=== PATIENT | male | born 1990 | race Caucasian/White ===

== ENCOUNTER 2017-07-24 12:03 | Emergency (ER) | payer OTHER, BC ==
[2017-07-24] MEDS: IBUPROFEN 600 MG TAB PO (14:20)
== END 2017-07-24 14:58 | disposition home or self-care (01) ==
LOC: M ED 12:03
DX: S33.5XXA Sprain of ligaments of lumbar spine, initial encounter (principal); S50.02XA Contusion of left elbow, initial encounter; R55 Syncope and collapse; X58.XXXA Exposure to other specified factors, initial encounter; Y92.9 Unspecified place or not applicable; Y93.9 Activity, unspecified; Y99.0 Civilian activity done for income or pay; Z79.899 Other long term (current) drug therapy
CPT/HCPCS: 73080

== ENCOUNTER 2017-07-26 16:29 | Emergency (ER) | payer OTHER ==
[2017-07-26 17:45] LABS: BASO % 0.6 % (0.0-1.0); EOS # 0.2 10^3/uL (0.0-0.50); EOS % 2.3 % (0.0-3.0); HEMATOCRIT 43.8 % (42.0-52.0); HEMOGLOBIN 15.3 g/dl (14.0-18.0); IMMATURE GRANULOCYTE % 0.5 % (0-3.0); LYMPH # 2.1 10^3/uL (1.5-6.5); MEAN CORPUSCULAR HEMOGLOBIN 30.5 pg (27.0-33.0); MEAN CORPUSCULAR HGB CONC 34.9 g/dl (32.0-36.5); MEAN CORPUSCULAR VOLUME 87.3 fl (80.0-96.0); MONO # 0.6 10^3/uL (0.0-0.8); MONO % 8.4 % (0.0-5.0); NEUTROPHILS # 3.7 10^3/uL (1.8-7.7); NEUTROPHILS % 56.2 % (36.0-66.0); PLATELET COUNT, AUTOMATED 168 10^3/uL (150-450); RED BLOOD COUNT 5.02 10^6/uL (4.30-6.10); RED CELL DISTRIBUTION WIDTH 12.2 % (11.5-14.5); WHITE BLOOD COUNT 6.6 10^3/uL (4.0-10.0)
[2017-07-26] MEDS: MORPHINE 4 MG/ML 1ML VIAL (J2270) IV (17:45)
[2017-07-26 18:10] LABS: AMYLASE 38 U/L (25-115); ANION GAP 9 MEQ/L (8-16); BLOOD UREA NITROGEN 16 MG/DL (7-18); C REACTIVE PROTEIN QUANTITATIV 1.44 MG/DL (0.00-0.30); CALCIUM LEVEL 8.9 MG/DL (8.5-10.1); CARBON DIOXIDE LEVEL 28 MEQ/L (21-32); CHLORIDE LEVEL 108 MEQ/L (98-107); CREATININE FOR GFR 1.06 MG/DL (0.70-1.30); GLOMERULAR FILTRATION RATE > 60.0 (>60); GLUCOSE, FASTING 82 MG/DL (70-100); LIPASE 145 U/L (73-393); SODIUM LEVEL 145 MEQ/L (136-145)
[2017-07-26 19:43] LABS: KETONE, URINE AUTO RFX NEGATIVE (NEGATIVE); LEUKOCYTE ESTERASE UR AUTO RFX NEGATIVE (NEGATIVE); MUCUS, URINE RFX SMALL (NEGATIVE); NITRITE, URINE AUTO RFX NEGATIVE (NEGATIVE); RBC, URINE AUTO RFX 0 /HPF (0-3); SQUAM EPITHELIAL CELL UR AURFX 0 /HPF (0-6); WBC, URINE AUTO RFX 0 /HPF (0-3)
[2017-07-26] MEDS: metroNIDAZOLE (FLAGYL) 500 MG TAB PO (21:00)
[2017-07-26] MEDS: CIPROFLOXACIN 500 MG TAB PO (21:00)
== END 2017-07-26 21:20 | disposition home or self-care (01) ==
LOC: M ED 16:29
DX: K57.30 Diverticulosis of large intestine without perforation or abscess without bleeding (principal); N20.0 Calculus of kidney; R16.1 Splenomegaly, not elsewhere classified; I10 Essential (primary) hypertension; F32.9 Major depressive disorder, single episode, unspecified; Z79.899 Other long term (current) drug therapy
CPT/HCPCS: J2270

== ENCOUNTER 2020-06-28 07:07 | Emergency (ER) | payer OTHER ==
[~2020-06-28] VITALS: Ht 180.3 cm; Wt 106.8 kg
[~2020-06-28 07:07] MED LIST: CIPR-249 PO; EFFE37.5 PO; FLAG500T PO; IBUP-1022 PO; LISI10TA22 PO; ZOFR4TAB14 PO
--- OUTSIDE RECORDS SUMMARY | 2020-06-28 07:12 | CCD ---
Author Author [facility] Organization [facility] Address Unknown Phone Unavailable Care Team Providers Care Management Consultant Name Role Phone Mag MOURA JR, PA-C Unavailable Unavailable Mag MOURA JR, PA-C Unavailable Unavailable Mag MOURA JR, PA-C Unavailable Unavailable Mag MOURA JR, PA-C Unavailable Unavailable Mag MOURA JR, PA-C Unavailable Unavailable Mag MOURA JR, PA-C Unavailable Unavailable Mag MOURA JR, PA-C Unavailable Unavailable Mag MOURA JR, PA-C Unavailable Unavailable Mag MOURA JR, PA-C Unavailable Unavailable PICKERAL JR, J RO PA-C Unavailable Unavailable PICKERAL JR, J RO PA-C Unavailable Unavailable PICKERAL JR, J RO PA-C Unavailable Unavailable PICKERAL JR, J RO PA-C Unavailable Unavailable PICKERAL JR, J RO PA-C Unavailable Unavailable PICKERAL JR, J RO PA-C Unavailable Unavailable PICKERAL JR, J RO PA-C Unavailable Unavailable PICKERAL JR, J RO PA-C Unavailable Unavailable PICKERAL JR, J RO PA-C Unavailable Unavailable PICKERAL JR, J RO PA-C Unavailable Unavailable Dille, E Jacqueline DDS Unavailable Unavailable Dille, E Jacqueline DDS Unavailable Unavailable Dille, E Jacqueline DDS Unavailable Unavailable Dille, E Jacqueline DDS Unavailable Unavailable Larry, Elodia CASH PROCESSOR Unavailable Unavailable Larry, Elodia CASH PROCESSOR Unavailable Unavailable Larry, Elodia CASH PROCESSOR Unavailable Unavailable Larry, Elodia CASH PROCESSOR Unavailable Unavailable Larry, Elodia CASH PROCESSOR Unavailable Unavailable Larry, Elodia CASH PROCESSOR Unavailable Unavailable Larry, Elodia CASH PROCESSOR Unavailable Unavailable Larry, Elodia CASH PROCESSOR Unavailable Unavailable Larry, Elodia CASH PROCESSOR Unavailable Unavailable Larry, Elodia CASH PROCESSOR Unavailable Unavailable Larry, Elodia CASH PROCESSOR Unavailable Unavailable Larry, Elodia CASH PROCESSOR Unavailable Unavailable Larry, Elodia CASH PROCESSOR Unavailable Unavailable Larry, Elodia CASH PROCESSOR Unavailable Unavailable Larry, Elodia CASH PROCESSOR Unavailable Unavailable Larry, Elodia CASH PROCESSOR Unavailable Unavailable Larry, Elodia CASH PROCESSOR Unavailable Unavailable Larry, Elodia CASH PROCESSOR Unavailable Unavailable Larry, Elodia CASH PROCESSOR Unavailable Unavailable Larry, Elodia CASH PROCESSOR Unavailable Unavailable Larry, Elodia CASH PROCESSOR Unavailable Unavailable Larry, Elodia CASH PROCESSOR Unavailable Unavailable Larry, Elodia CASH PROCESSOR Unavailable Unavailable Larry, Elodia CASH PROCESSOR Unavailable Unavailable Larry, Elodia CASH PROCESSOR Unavailable Unavailable Larry, Elodia CASH PROCESSOR Unavailable Unavailable Larry, Elodia CASH PROCESSOR Unavailable Unavailable Larry, Elodia CASH PROCESSOR Unavailable Unavailable Larry, Elodia CASH PROCESSOR Unavailable Unavailable Larry, Elodia CASH PROCESSOR Unavailable Unavailable Larry, Elodia CASH PROCESSOR Unavailable Unavailable Larry, Elodia CASH PROCESSOR Unavailable Unavailable Larry, Elodia CASH PROCESSOR Unavailable Unavailable Larry, Elodia CASH PROCESSOR Unavailable Unavailable Larry, Elodia CASH PROCESSOR Unavailable Unavailable Larry, Elodia CASH PROCESSOR Unavailable Unavailable Larry, Elodia CASH PROCESSOR Unavailable Unavailable Larry, Elodia CASH PROCESSOR Unavailable Unavailable Larry, Elodia CASH PROCESSOR Unavailable Unavailable Larry, Elodia CASH PROCESSOR Unavailable Unavailable Larry, Elodia CASH PROCESSOR Unavailable Unavailable Larry, Elodia CASH PROCESSOR Unavailable Unavailable Larry, Elodia CASH PROCESSOR Unavailable Unavailable Larry, Elodia CASH PROCESSOR Unavailable Unavailable Larry, Elodia CASH PROCESSOR Unavailable Unavailable Larry, Elodia CASH PROCESSOR Unavailable Unavailable Larry, Elodia CASH PROCESSOR Unavailable Unavailable Larry, Elodia CASH PROCESSOR Unavailable Unavailable Larry, Elodia CASH PROCESSOR Unavailable Unavailable Larry, Elodia CASH PROCESSOR Unavailable Unavailable Larry, Elodia CASH PROCESSOR Unavailable Unavailable Larry, Elodia CASH PROCESSOR Unavailable Unavailable Larry, Elodia CASH PROCESSOR Unavailable Unavailable Bartoszewski, Roz Alejandrina MS, RPA-C Unavailable Unav ailable Bartoszewski, Roz Alejandrina MS, RPA-C Unavailable Unav ailable Bartoszewski, Roz Alejandrina MS, RPA-C Unavailable Unav ailable Bartoszewski, Roz Alejandrina MS, RPA-C Unavailable Unav ailable Bartoszewski, Roz Alejandrina MS, RPA-C Unavailable Unav ailable Bartoszewski, Roz Alejandrina MS, RPA-C Unavailable Unav ailable Bartoszewski, Roz Alejandrina MS, RPA-C Unavailable Unav ailable Bartoszewski, Roz Alejandrina MS, RPA-C Unavailable Unav ailable Bartoszewski, Roz Alejandrina MS, RPA-C Unavailable Unav ailable Bartoszewski, Roz Alejandrina MS, RPA-C Unavailable Unav ailable Bartoszewski, Roz Alejandrina MS, RPA-C Unavailable Unav ailable Bartoszewski, Roz Alejandrina MS, RPA-C Unavailable Unav ailable Bartoszewski, Roz Alejandrina MS, RPA-C Unavailable Unav ailable Bartoszewski, Roz Alejandrina MS, RPA-C Unavailable Unav ailable Bartoszewski, Roz Alejandrina MS, RPA-C Unavailable Unav ailable Bartoszewski, Roz Alejandrina MS, RPA-C Unavailable Unav ailable Bartoszewski, Roz Alejandrina MS, RPA-C Unavailable Unav ailable Bartoszewski, Roz Alejandrina MS, RPA-C Unavailable Unav ailable Bartoszewski, Roz Alejandrina MS, RPA-C Unavailable Unav ailable Bartoszewski, Roz Alejandrina MS, RPA-C Unavailable Unav ailable Bartoszewski, Roz Alejandrina MS, RPA-C Unavailable Unav ailable Bartoszewski, Roz Alejandrina MS, RPA-C Unavailable Unav ailable Bartoszewski, Roz Alejandrina MS, RPA-C Unavailable Unav ailable Bartoszewski, Roz Alejandrina MS, RPA-C Unavailable Unav ailable Bartoszewski, Roz Alejandrina MS, RPA-C Unavailable Unav ailable Bartoszewski, Roz Alejandrina MS, RPA-C Unavailable Unav ailable Bartoszewski, Roz Alejandrina MS, RPA-C Unavailable Unav ailable Bartoszewski, Roz Alejandrina MS, RPA-C Unavailable Unav ailable Bartoszewski, Roz Alejandrina MS, RPA-C Unavailable Unav ailable Re-disclosure Warning The records that you are about to access may contain information from federally-assisted alcohol or drug abuse programs. If such information is present, then the following federally mandated warning applies: This information has been disclosed to you from records protected by federal confidentiality rules (42 CFR part 2). The federal rules prohibit you from making any further disclosure of this information unless further disclosure is expressly permitted by the written consent of the person to whom it pertains or as otherwise permitted by 42 CFR part 2. A general authorization for the release of medical or other information is NOT sufficient for this purpose. The Federal rules restrict any use of the information to criminally investigate or prosecute any alcohol or drug abuse patient.The records that you are about to access may contain highly sensitive health information, the redisclosure of which is protected by Article 27-F of the [facility] Public Health law. If you continue you may have access to information: Regarding HIV / AIDS; Provided by facilities licensed or operated by the [facility] Office of Mental Health; or Provided by the [facility] Office for People With Developmental Disabilities. If such information is present, then the following [place] State mandated warning applies: This information has been disclosed to you from confidential records which are protected by state law. State law prohibits you from making any further disclosure of this information without the specific written consent of the person to whom it pertains, or as otherwise permitted by law. Any unauthorized further disclosure in violation of state law may result in a fine or [place] health care facility sentence or both. A general authorization for the release of medical or other information is NOT sufficient authorization for further disc losure. Family History Family Member Name Family Member Gender Family Member Status Date o f Status Description Data Source(s) Unknown Unknown Problem [facility] ([facility]) daughter with second child on the way Unknown Unknown Problem [facility] ([facility], [facility]) mgf,pgf Encounters Encounter Providers Location Date Indications Data Source(s ) Outpatient Attender: Jacqueline Gallo DDS [facility] 12/27/2019 08:02:17 P [facility] Outpatient Attender: RO Wisdom 0 12/25/2019 11:00:00 AM [facility] Outpatient Attender: Jacqueline Gallo DDS [facility] 11/28/2019 09:52:02 A M [facility] Outpatient Attender: Jacqueline Gallo DDS [facility] 11/27/2019 01:24:01 P [facility] Outpatient Attender: Jacqueline Gallo DDS [facility] 11/27/2019 01:23:01 P [facility] Outpatient Attender: Jacqueline Gallo DDS [facility] 11/27/2019 12:14:01 P [facility] Outpatient Attender: Jacqueline Gallo DDS [facility] 11/19/2019 07:49:42 P [facility] Outpatient Attender: Jacqueline Gallo DDS [facility] 11/09/2019 12:15:36 A [facility] Outpatient Attender: Elodia Wisdom 0 07/09/2019 12:00:00 PM [facility] ([facility] ) Emergency Attender: Alejandrina Lagunas MS, RPA-C 05/27/2013 09:24:00 AM EST - 05/27/2013 11:05:00 AM [facility] Medications Medication Brand Name Start Date Product Form Dose Route Admi nistrative Instructions Pharmacy Instructions Status Indications Reaction Description Data Source(s) 500 mg 06/04/2020 12:00:00 AM EST capsule 20 TAKE ONE CAPSULE BY MOUTH TWICE A DAY FOR 10 DAYS TAKE ONE CAPSULE BY MOUTH TWICE A DAY FOR 10 DAYS SOLD : 06/06/2020 [facility] Insurance Providers Payer name Policy type / Coverage type Policy ID Covered democrat ID Covered democrat's relationship to cline Policy Cline Plan Information [employer] W/C [id number] SP [id number] UMR P UNAVAILABLE S UNAVAILA BLE UMR RISK MANAGEMENT [id number] S [id number] UMR U [id number] Self [id number] Ghi/[employer] Medigap Part B [id number] Family Dependent [id number] [place]/Umr (Old) Medigap Part B [id number] Self [id number] Workers Compensation Workers Compensation [id number] Self [id number] Umr (New [place]) Commercial [id number] Self [id number] BS [place] Commercial [id number] Self [id number] UMR [id number] S [id number] SELF PAY UNAVAILABLE S UNAVAILA BLE UMR [id number] S [id number] Umr/Uhc/[employer] Health Maintenance Organization (HMO) [id number] Self [id number] Umr/Uhc/[employer] Health Maintenance Organization (HMO) [id number] Self [id number] Workers Compensation Workers Compensation [id number] Self [id number] Ghi/[employer] Medigap Part B [id number] Family Dependent [id number] Umr [place] Ppo Commercial [id number] Self [id number] [facility] SELF INSURED [id number] SP [id number] Ghi/[employer] Medigap Part B [id number] Family Dependent [id number] Umr [place] Ppo Commercial [id number] Self [id number] G[employer] Medigap Part B [id number] Family Dependent [id number] Umr [place] Ppo Commercial [id number] Self [id number] G[employer] Medigap Part B [id number] Family Dependent [id number] Umr [place] Ppo Commercial [id number] Self [id number] [facility] SELF INS O [id number] O [id number] [employer] [id number] FA2 [id number] BCBS [phone] [id number] MO2 [id number] Ghi/[employer] Medigap Part B [id number] Family Dependent [id number] Umr [place] Ppo Commercial [id number] Self [id number] Ghi[employer] Medigap Part B [id number] Family Dependent [id number] Umr [place] Ppo Commercial [id number] Self [id number] [place] Risk MGMNT [facility] Workers Compensation [id number] Jenna f [id number] [employer] Commercial [id number] Self [id number] D Guardian P [id number] S [id number] Ghi/[employer] Medigap Part B [id number] Family Dependent [id number] [place] Ppo Commercial [id number] Self [id number] [employer] COMM SELF [id number] S [id number] Ghi/[employer] Medigap Part B [id number] Family Dependent [id number] [place] Ppo Commercial [id number] Self [id number] Ghi/[employer] Commercial [id number] Family Dependent [id number] [facility] [id number] [place](W/C-[facility]& [employer] Workers Compensation Self [place] Commercial Self [facility] SELF INSURED [id number] S [id number] Problems, Conditions, and Diagnoses Code Display Name Description Problem Type Effective Dates Data Source(s) 16425163 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 Problem 03/04/20 12:00:00 AM EDT [facility] ([facility], ) 66021278 Visual disturbance Visual disturbance Problem 05/2020 12:00:00 AM EDT [facility] ([facility], ) [id number] Dizziness and giddiness Dizziness and giddiness Proble m 01/22/2020 12:00:00 AM EDT [facility] ([facility], ) [id number] Isolated seizures Isolated seizures Problem 01/21 12:00:00 AM EDT [facility] ([facility] ) 601507908 Syncope and collapse Syncope and collapse Problem 01/22/2020 12:00:00 AM EDT [facility] ([facility] ) Surgeries/Procedures Procedure Description Date Indications Data Source(s) ELECTROENCEPHALOGRAM W/REC AWAKE&ASLEEP 03/02/2020 12: 00:00 AM EDT [facility] ([facility] ) ELECTROENCEPHALOGRAM W/REC AWAKE&ASLEEP 03/02/2020 12: 00:00 AM EDT [facility] ([facility] ) Magnetic Resonance Angiogtaphy Head W/O Contrast Material(S) 02/11/2020 12:00:00 AM EDT [facility] ([facility] ) Magnetic Resonance Angiogtaphy Head W/O Contrast Material(S) 02/11/2020 12:00:00 AM EDT [facility] ([facility] ) MRI Brain W/O Contrast, Followed By Contrast 0 12:00:00 AM EDT [facility] ([facility], ) MRI Brain W/O Contrast, Followed By Contrast 0 12:00:00 AM EDT [facility] ([facility], ) Results ID Date Data Source [id number] 06/04/2020 12:00:00 AM EST [facility] Name Value Range Interpretation Code Description Data Syeda rce(s) Supporting Document(s) SARS coronavirus 2 RNA [Presence] in Res piratory specimen by SHERRIE with probe detection [facility] This lab was ordered by Elizabeth [place] and reported by [facility]. ID Date Data Source [id number] 06/04/2020 12:00:00 AM EST [facility] Name Value Range Interpretation Code Description Data Syeda rce(s) Supporting Document(s) Carestart Rapid COVID Antigen Test [facility] This lab was reported by Elizabeth [facility] ID Date Data Source [id number] 11/27/2019 12:32:42 PM EDT [facility] Current Problems: [place] teeth impaction (ICD-520.6) (OJT92-A31.1)heart murmur (ICD-785.2) (HBX03-W51.1) Dental Chart: Procedures:Type - CDT Code - Description B - (D0270) Bitewing, single radiographic image (Performed by Josh Eavns DDS) B - (D0220) Intraoral, periapical, first radiographic image on Tooth # 30 (Performed by Josh Evans DDS) B - (D0140) Limited oral evaluation - problem focused on Tooth # 30 (Performed by Josh Evans DDS) B - (D1999) Unspecified preventive procedure, by report on Tooth # 30 (Performed by Josh Evans DDS) Chart Alert:07/27/2016 guardian ins no history Chart Notes:carlos (Nov 28 2019 9:51AM): CC: "I have a black spot on my tooth that I noticed along the gumline while eating chips. It doesn't hurt, I just wanted to get it checked out so it doesn't start hurting."HPI: noticed black spot a couple weeks agoPaissac Lvl: 0RMH (-) no changes per pt- pt states he had surgery on his feet years ago.Pt drinks occasionally.Allergies; NKDABP: 125/108Temperature: 98.2 passed covid questionnairePA #30 & right bwx taken-DexisExam reveals: noticed that pt had amalgam anglican placed in 2017, Dr Evans examined tooth #30 to make sure anglican was still intact. pt. was cooperative.Pt states that he only brushes 1x every couple of days, so he has never noticed that the anglican was dark in color (amalgam). Advised pt that it is very important to brush 2x a day and floss everyday. Pt also stated he had not seen a dentist in a long time before amalgam was placed. Dr Evans advised a cleaning and comp exam Additional PPE were used due to COVID-19. This included a minimum of a N95, a surgical mask, a hair covering, a face shield, proctective eyewear, and a gown.NV: comp examJosh Evans DDS by carlos (11/28/2019 9:51 AM): Tooth Notes and Watches: Assessment & Plan Allergies:No Known Allergies (updated 10/14/2016) Name Value Range Interpretation Code Description Data Syeda rce(s) Supporting Document(s) Procedure Vital Signs ID Date Data Source UNK Name Value Range Interpretation Code Description Data Source(s) Body mass index (BMI) [Ratio] 32.1 kg/m2 32.1 k g/m2 [facility] ([facility], ) Body weight 230.00 [lb_av] 230.00 [lb_av] [facility] T ([facility], ) Body height 71 [in_i] 71 [in_i] [facility] ([facility], ) 5'11" Respiratory rate 14 /min 14 /min [facility] Heart rate 82 /min 82 /min [facility] Diastolic blood pressure 100 mm[Hg] 100 mm[Hg] [facility] ([facility]) Systolic blood pressure 140 mm[Hg] 140 mm[Hg] [facility] ([facility]) Body mass index (BMI) [Ratio] 32.1 kg/m2 32.1 k g/m2 [facility] Oxygen saturation in Arterial blood by Pulse oximetry 98 % 98 % [facility] ([facility]) Body weight 230.00 [lb_av] 230.00 [lb_av] [facility] T ([facility]) Body height 71.0 [in_i] 71.0 [in_i] [facility] ([facility]) 5'11" Heart rate 66 /min 66 /min [facility] ([facility]) Diastolic blood pressure 80 mm[Hg] 80 mm[Hg] [facility] Systolic blood pressure 126 mm[Hg] 126 mm[Hg] M EDENT ([facility]) Body mass index (BMI) [Ratio] 33.7 kg/m2 33.7 k g/m2 [facility] ([facility]) Oxygen saturation in Arterial blood by Pulse oximetry 97 % 97 % [facility] ([facility]) RM Air Body weight 242.00 [lb_av] 242.00 [lb_av] [facility] T ([facility]) Body height 71.0 [in_i] 71.0 [in_i] [facility] ([facility]) 5'11" Heart rate 84 /min 84 /min [facility] ([facility]) Diastolic blood pressure 82 mm[Hg] 82 mm[Hg] WING ([facility]) Systolic blood pressure 130 mm[Hg] 130 mm[Hg] M EDCHARLIE ([facility]) ID Date Data Source [id number] 08/13/2019 11:00:00 PM EST [facility] Name Value Range Interpretation Code Description Data Source(s) WEIGHT 92.98 kilos 92.98 kilos [facility] HEIGHT 180.34 centimeters 180.34 centimeter [facility] WEIGHT 92.98 kilos 92.98 kilos [facility] HEIGHT 180.34 centimeters 180.34 centimeter [facility]
[2020-06-28 07:34] LABS: BASO % 0.5 % (0.0-1.0); EOS # 0.1 10^3/uL (0.0-0.5); EOS % 2.6 % (0.0-3.0); HEMATOCRIT 44.2 % (42.0-52.0); HEMOGLOBIN 15.2 g/dl (13.5-17.5); LYMPH # 1.1 10^3/uL (1.5-5.0); LYMPH % 24.9 % (24.0-44.0); MEAN CORPUSCULAR HEMOGLOBIN 29.8 pg (27.0-33.0); MEAN CORPUSCULAR HGB CONC 34.4 g/dl (32.0-36.5); MEAN CORPUSCULAR VOLUME 86.7 fl (80.0-96.0); MONO # 0.3 10^3/uL (0.0-0.8); MONO % 7.5 % (0.0-5.0); NEUTROPHILS # 2.7 10^3/uL (1.5-8.5); NEUTROPHILS % 63.8 % (36.0-66.0); PLATELET COUNT, AUTOMATED 124 10^3/uL (150-450); WHITE BLOOD COUNT 4.3 10^3/uL (4.0-10.0)
--- NOTE | 2020-06-28 08:01 | REPVR ---
PROCEDURE INFORMATION: Exam: US Retroperitoneal Limited, Kidneys Exam date and time: 06/28/2020 7:44 AM Age: 29 years old Clinical indication: Pain; Other: Flank; Additional info: L flank pain, eval for hydro/calc TECHNIQUE: Imaging protocol: Real-time ultrasound of the retroperitoneum with image documentation. Examination was focused on the kidneys. COMPARISON: CT ABD PELVIS W/O CONTRAST 07/26/2017 5:49 PM FINDINGS: Right kidney: The right kidney measures 11.0 x 5.5 x 7.2 centimetres. There is no right renal mass, stone, cyst or hydronephrosis. Left kidney: The left kidney measures 12.1 x 5.4 x 4.8 centimetres. There is no left renal mass, stone, cyst or hydronephrosis. Bladder: The urinary bladder is under distended limiting its evaluation. There is apparent bladder wall thickening. No intra bladder mass or stone seen. IMPRESSION: 1. Unremarkable ultrasound of the kidneys with no evidence of echogenic stones or hydronephrosis. 2. Apparent thickened urinary bladder wall likely due to under distension however underlying cystitis cannot be excluded. Electronically signed by: Mynor Banks On 06/28/2020 08:01:32 AM
[2020-06-28 08:08] LABS: BLOOD UREA NITROGEN 16 MG/DL (7-18); CALCIUM LEVEL 8.9 MG/DL (8.5-10.1); CARBON DIOXIDE LEVEL 24 MEQ/L (21-32); CHLORIDE LEVEL 109 MEQ/L (98-107); CREATININE FOR GFR 1.04 MG/DL (0.70-1.30); GLOMERULAR FILTRATION RATE > 60.0 (>60); GLUCOSE, FASTING 108 MG/DL (70-100); POTASSIUM SERUM 3.8 MEQ/L (3.5-5.1); SODIUM LEVEL 141 MEQ/L (136-145)
[2020-06-28] MEDS ORDERED: ACETAMINOPHEN 500 MG TAB PO ONE (08:15)
--- OUTSIDE RECORDS SUMMARY | 2020-06-28 08:23 | CCD ---
Author Author [facility] Organization [facility] Address Unknown Phone Unavailable Care Team Providers Care Ice Seller Name Role Phone Mag MOURA JR, PA-C [...] E Jacqueline DDS Unavailable Unavailable Larry, Elodia CONCRETE PUMP OPERATOR Unavailable Unavailable Larry, Elodia CONCRETE PUMP OPERATOR Unavailable Unavailable Larry, Elodia CONCRETE PUMP OPERATOR Unavailable Unavailable Larry, Elodia CONCRETE PUMP OPERATOR Unavailable Unavailable Larry, Elodia CONCRETE PUMP OPERATOR Unavailable Unavailable Larry, Elodia CONCRETE PUMP OPERATOR Unavailable Unavailable Larry, Elodia CONCRETE PUMP OPERATOR Unavailable Unavailable Larry, Elodia CONCRETE PUMP OPERATOR Unavailable Unavailable Larry, Elodia CONCRETE PUMP OPERATOR Unavailable Unavailable Larry, Elodia CONCRETE PUMP OPERATOR Unavailable Unavailable Larry, Elodia CONCRETE PUMP OPERATOR Unavailable Unavailable Larry, Elodia CONCRETE PUMP OPERATOR Unavailable Unavailable Larry, Elodia CONCRETE PUMP OPERATOR Unavailable Unavailable Larry, Elodia CONCRETE PUMP OPERATOR Unavailable Unavailable Larry, Elodia CONCRETE PUMP OPERATOR Unavailable Unavailable Larry, Elodia CONCRETE PUMP OPERATOR Unavailable Unavailable Larry, Elodia CONCRETE PUMP OPERATOR Unavailable Unavailable Larry, Elodia CONCRETE PUMP OPERATOR Unavailable Unavailable Larry, Elodia CONCRETE PUMP OPERATOR Unavailable Unavailable Larry, Elodia CONCRETE PUMP OPERATOR Unavailable Unavailable Larry, Elodia CONCRETE PUMP OPERATOR Unavailable Unavailable Larry, Elodia CONCRETE PUMP OPERATOR Unavailable Unavailable Larry, Elodia CONCRETE PUMP OPERATOR Unavailable Unavailable Larry, Elodia CONCRETE PUMP OPERATOR Unavailable Unavailable Larry, Elodia CONCRETE PUMP OPERATOR Unavailable Unavailable Larry, Elodia CONCRETE PUMP OPERATOR Unavailable Unavailable Larry, Elodia CONCRETE PUMP OPERATOR Unavailable Unavailable Larry, Elodia CONCRETE PUMP OPERATOR Unavailable Unavailable Larry, Elodia CONCRETE PUMP OPERATOR Unavailable Unavailable Larry, Elodia CONCRETE PUMP OPERATOR Unavailable Unavailable Larry, Elodia CONCRETE PUMP OPERATOR Unavailable Unavailable Larry, Elodia CONCRETE PUMP OPERATOR Unavailable Unavailable Larry, Elodia CONCRETE PUMP OPERATOR Unavailable Unavailable Larry, Elodia CONCRETE PUMP OPERATOR Unavailable Unavailable Larry, Elodia CONCRETE PUMP OPERATOR Unavailable Unavailable Larry, Elodia CONCRETE PUMP OPERATOR Unavailable Unavailable Larry, Elodia CONCRETE PUMP OPERATOR Unavailable Unavailable Larry, Elodia CONCRETE PUMP OPERATOR Unavailable Unavailable Larry, Elodia CONCRETE PUMP OPERATOR Unavailable Unavailable Larry, Elodia CONCRETE PUMP OPERATOR Unavailable Unavailable Larry, Elodia CONCRETE PUMP OPERATOR Unavailable Unavailable Larry, Elodia CONCRETE PUMP OPERATOR Unavailable Unavailable Larry, Elodia CONCRETE PUMP OPERATOR Unavailable Unavailable Larry, Elodia CONCRETE PUMP OPERATOR Unavailable Unavailable Larry, Elodia CONCRETE PUMP OPERATOR Unavailable Unavailable Larry, Elodia CONCRETE PUMP OPERATOR Unavailable Unavailable Larry, Elodia CONCRETE PUMP OPERATOR Unavailable Unavailable Larry, Elodia CONCRETE PUMP OPERATOR Unavailable Unavailable Larry, Elodia CONCRETE PUMP OPERATOR Unavailable Unavailable Larry, Elodia CONCRETE PUMP OPERATOR Unavailable Unavailable Larry, Elodia CONCRETE PUMP OPERATOR Unavailable Unavailable Larry, Elodia CONCRETE PUMP OPERATOR Unavailable Unavailable Larry, Elodia CONCRETE PUMP OPERATOR Unavailable Unavailable Bartoszewski, Roz Alejandrina MS, RPA-C [...] is protected by Article 27-F of the [facility] Public Health law. If you continue you may have access to information: Regarding HIV / AIDS; Provided by facilities licensed or operated by the [facility] Office of Mental Health; or Provided by the [facility] Office for People With Developmental Disabilities. If such information is present, then the following [facility] mandated warning applies: This information has been [...] law may result in a fine or group home sentence or both. A general authorization for the release of medical or other information is NOT sufficient authorization for further disc losure. Family History Family Member Name Family Member Gender Family Member Status Date o f Status Description Data Source(s) Unknown Unknown Problem [facility] ([facility]) daughter with second child on the way Unknown Unknown Problem [facility] ([facility], [facility]) mgf,pgf Encounters Encounter Providers Location Date Indications Data Source(s ) Outpatient Attender: Jacqueline Gallo DDS [facility] 12/27/2019 08:02:17 P [facility] Outpatient Attender: RO Wisdom 0 12/25/2019 11:00:00 AM [facility] ([facility] ) Outpatient Attender: Jacqueline Gallo DDS [facility] 11/28/2019 09:52:02 A [facility] Outpatient Attender: Jacqueline Gallo DDS [facility] 11/27/2019 01:24:01 P [facility] Outpatient Attender: Jacqueline Gallo DDS [facility] 11/27/2019 01:23:01 P [facility] Outpatient Attender: Jacqueline Gallo DDS [facility] 11/27/2019 12:14:01 P [facility] Outpatient Attender: Jacqueline Gallo DDS [facility] 11/19/2019 07:49:42 P [facility] Outpatient Attender: Jacqueline Gallo DDS [facility] 11/09/2019 12:15:36 A [facility] Outpatient Attender: Elodia Wisdom 0 07/09/2019 12:00:00 PM [facility] Emergency Attender: Alejandrina Lagunas MS, RPA-C 05/27/2013 09:24:00 AM [facility] - 05/27/2013 11:05:00 AM [facility] Medications Medication Brand Name Start Date Product Form Dose Route Admi nistrative Instructions Pharmacy Instructions Status Indications Reaction Description Data Source(s) 500 mg 06/04/2020 12:00:00 AM EST capsule 20 TAKE ONE CAPSULE BY MOUTH TWICE A DAY FOR 10 DAYS TAKE ONE CAPSULE BY MOUTH TWICE A DAY FOR 10 DAYS SOLD : 06/06/2020 [facility] Insurance Providers Payer name Policy type / Coverage type Policy ID Covered green party ID Covered green party's relationship to cline Policy Cline Plan Information UMR [facility] [id number] SP [id number] [place] W/C [id number] SP [id number] UMR P UNAVAILABLE S UNAVAILA BLE UMR RISK MANAGEMENT [id number] S [id number] UMR U [id number] Self [id number] Ghi/[employer] Medigap Part B [id number] Family Dependent [id number] [place]/Umr (Old) Medigap Part B [id number] Self [id number] Workers Compensation Workers Compensation [id number] Self [id number] Umr (New [place]) Commercial [id number] Self [id number] BS [place] Commercial [id number] Self [id number] UMR [id number] S [id number] SELF PAY UNAVAILABLE S UNAVAILA BLE UMR [id number] S [id number] Umr/Uhc/[place] Health Maintenance Organization (HMO) [id number] Self [id number] Umr/Uhc/[employer] Health Maintenance Organization (HMO) [id number] Self [id number] Workers Compensation Workers Compensation [id number] Self [id number] Ghi/[employer] Medigap Part B [id number] Family Dependent [id number] Umr [place] Ppo Commercial [id number] Self [id number] [employer] SELF INSURED [id number] SP [id number] Ghi/[employer] Medigap Part B [id number] Family Dependent [id number] Umr [place] Ppo Commercial [id number] Self [id number] Ghi/[employer] Medigap Part B [id number] Family Dependent [id number] Umr [place] Ppo Commercial [id number] Self [id number] Ghi/[employer] Medigap Part B [id number] Family Dependent [id number] Umr [place] Ppo Commercial [id number] Self [id number] [employer] SELF INS O [id number] O [id number] GROUP HEALTH INSURANCE [id number] FA2 [id number] BCBS [facility] [id number] Ghi/[employer] Medigap Part B [id number] Family Dependent [id number] Umr [place] Ppo Commercial [id number] Self [id number] Ghi/[employer] Medigap Part B [id number] Family Dependent [id number] Umr [place] Ppo Commercial [id number] Self [id number] [place] Risk MGMNT [facility] Workers Compensation [id number] Jenna f [id number] [place] Commercial [id number] Self [id number] D Guardian P [id number] S [id number] Ghi/[employer] Medigap Part B [id number] Family Dependent [id number] [place] Ppo Commercial [id number] Self [id number] [employer] COMM SELF [id number] S [id number] Ghi/[employer] Medigap Part B [id number] Family Dependent [id number] [place] Ppo Commercial [id number] Self [id number] Ghi/[employer] Commercial [id number] Family Dependent [id number] [facility] [id number] [place]([employer] Workers Compensation Self [place] Commercial Self [facility] SELF INSURED [id number] S [id number] Problems, Conditions, and Diagnoses Code Display Name Description Problem Type Effective Dates Data Source(s) 00042602 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 Problem 03/04/20 12:00:00 AM EDT [facility] ([facility]) [id number] Visual disturbance Visual disturbance Problem 05/2020 12:00:00 AM EDT [facility] ([facility]) [id number] Dizziness and giddiness Dizziness and giddiness Proble m 01/22/2020 12:00:00 AM EDT [facility] ([facility] ) [id number] Isolated seizures Isolated seizures Problem 01/21 12:00:00 AM EDT [facility] ([facility] ) [id number] Syncope and collapse Syncope and collapse Problem 01/22/2020 12:00:00 AM EDT [facility] ([facility] ) Surgeries/Procedures Procedure Description Date Indications Data Source(s) ELECTROENCEPHALOGRAM W/REC AWAKE&ASLEEP 03/02/2020 12: 00:00 AM EDT [facility] ([facility] ) ELECTROENCEPHALOGRAM W/REC AWAKE&ASLEEP 03/02/2020 12: 00:00 AM EDT [facility] ([facility] ) Magnetic Resonance Angiogtaphy Head W/O Contrast Material(S) 02/11/2020 12:00:00 AM EDT [facility] ([facility] Magnetic Resonance Angiogtaphy Head W/O Contrast Material(S) 02/11/2020 12:00:00 AM EDT [facility] ([facility] MRI Brain W/O Contrast, Followed By Contrast 0 12:00:00 AM EDT [facility] ([facility] ) MRI Brain W/O Contrast, Followed By Contrast 0 12:00:00 AM EDT [facility] ([facility] ) Results ID Date Data Source [id number] 06/04/2020 12:00:00 AM EST [facility] Name Value Range Interpretation Code Description Data Syeda rce(s) Supporting Document(s) SARS coronavirus 2 RNA [Presence] in Res piratory specimen by SHERRIE with probe detection [facility] This lab [facility] and reported by [facility]. ID Date Data Source [id number] 06/04/2020 12:00:00 AM EST [facility] Name Value Range Interpretation Code Description Data Syeda rce(s) Supporting Document(s) Carestart Rapid COVID Antigen Test [facility] This lab was reported by [facility] ID Date Data Source [id number] 11/27/2019 12:32:42 PM EDT [facility] Current Problems: [place] teeth impaction (ICD-520.6) (HUZ76-L75.1)heart murmur (ICD-785.2) (URC28-N15.1) Dental Chart: Procedures:Type - CDT Code - Description B - (D0270) Bitewing, single radiographic image (Performed by Josh Evans DDS) B - (D0220) Intraoral, periapical, first [...] hurting."HPI: noticed black spot a couple weeks agoPain Lvl: 0RMH (-) no changes per pt- pt states he had surgery on his feet years ago.Pt drinks occasionally.Allergies; NKDABP: 125/108Temperature: 98.2 passed covid questionnairePA #30 & right bwx taken-DexisExam reveals: noticed that pt had amalgam orthodoxy placed in 2017, Dr Evans examined tooth #30 to make sure orthodoxy was still intact. pt. was cooperative.Pt states that he only brushes 1x every couple of days, so he has never noticed that the orthodoxy was dark in color (amalgam). Advised pt [...] shield, proctective eyewear, and a gown.NV: comp examJaJosh davenport DDS by carlos (11/28/2019 9:51 AM): Tooth Notes and Watches: Assessment & Plan Allergies:No Known Allergies (updated 10/14/2016) Name Value Range Interpretation Code Description Data Syeda rce(s) Supporting Document(s) Procedure Vital Signs ID Date Data Source UNK Name Value Range Interpretation Code Description Data Source(s) Body mass index (BMI) [Ratio] 32.1 kg/m2 32.1 k g/m2 [facility] ([facility], ) Body weight 230.00 [lb_av] 230.00 [lb_av] IVONNE T ([facility], ) Body height 71 [in_i] 71 [in_i] [facility] ([facility]) 5'11" Respiratory rate 14 /min 14 /min [facility] ( [facility]) Heart rate 82 /min 82 /min [facility] ([facility]) Diastolic blood pressure 100 mm[Hg] 100 mm[Hg] [facility] ([facility]) Systolic blood pressure 140 mm[Hg] 140 mm[Hg] [facility] ([facility]) Body mass index (BMI) [Ratio] 32.1 kg/m2 32.1 k g/m2 [facility] ([facility]) Oxygen saturation in Arterial blood by Pulse oximetry 98 % 98 % [facility] ([facility]) Body weight 230.00 [lb_av] 230.00 [lb_av] MEDEN T ([facility]) Body height 71.0 [in_i] 71.0 [in_i] [facility] ([facility]) 5'11" Heart rate 66 /min 66 /min [facility] ([facility]) Diastolic blood pressure 80 mm[Hg] 80 mm[Hg] [facility] ([facility]) Systolic blood pressure 126 mm[Hg] 126 mm[Hg] [facility] ([facility]) Body mass index (BMI) [Ratio] 33.7 kg/m2 33.7 k g/m2 WNIG ([facility]) Oxygen saturation in Arterial blood by Pulse oximetry 97 % 97 % WING ([facility]) RM Air Body weight 242.00 [lb_av] 242.00 [lb_av] ALANNAEN T ([facility]) Body height 71.0 [in_i] 71.0 [in_i] W[facility] ([facility]) 5'11" Heart rate 84 /min 84 /min [facility] ([facility]) Diastolic blood pressure 82 mm[Hg] 82 mm[Hg] [facility] ([facility]) Systolic blood pressure 130 mm[Hg] 130 mm[Hg] SUSAN ([facility]) ID Date Data Source [id number] 08/13/2019 11:00:00 PM EST [facility] Name Value Range Interpretation Code Description Data Source(s) WEIGHT 92.98 kilos 92.98 kilos [facility] HEIGHT 180.34 centimeters 180.34 centimeter [facility] WEIGHT 92.98 kilos 92.98 kilos [facility] HEIGHT 180.34 centimeters 180.34 centimeter [facility]
[2020-06-28] MEDS ORDERED: KETO10TAB PO (08:43)
[2020-06-28] MEDS ORDERED: FLOM0.4C39 PO (08:43)
[2020-06-28] MEDS ORDERED: TAMSULOSIN 0.4 MG CAP PO ONE (08:45)
[2020-06-28 08:52] VITALS: BP 128/82
== END 2020-06-28 08:53 | disposition home or self-care (01) ==
LOC: M ED 07:07
DX: N20.1 Calculus of ureter (principal)

== ENCOUNTER 2024-04-14 09:28 | Emergency (ER) | payer BC, OTHER ==
[~2024-04-14] VITALS: Ht 180.3 cm; Wt 102.3 kg
[~2024-04-14 09:28] MED LIST changes: -EFFE37.5 PO; +EFFE37.52 PO; +FLOM0.4C39 PO; +KETO10TAB PO
[2024-04-14 10:08] LABS: BASO % 0.6 % (0.0-1.0); EOS % 0.6 % (0.0-3.0); HEMOGLOBIN 15.2 g/dl (13.5-17.5); LYMPH # 0.6 10^3/uL (1.5-5.0); LYMPH % 11.4 % (24.0-44.0); MEAN CORPUSCULAR HEMOGLOBIN 31.4 pg (27.0-33.0); MEAN CORPUSCULAR HGB CONC 36.2 g/dl (32.0-36.5); MEAN CORPUSCULAR VOLUME 86.8 fl (80.0-96.0); MONO # 0.5 10^3/uL (0.0-0.8); MONO % 9.5 % (2.0-8.0); NEUTROPHILS # 3.9 10^3/uL (1.5-8.5); NEUTROPHILS % 77.5 % (36.0-66.0); PLATELET COUNT, AUTOMATED 115 10^3/uL (150-450); RED BLOOD COUNT 4.84 10^6/uL (4.30-6.10); WHITE BLOOD COUNT 5.1 10^3/uL (4.0-10.0)
[2024-04-14] MEDS ORDERED: DOXY100C82 PO (10:22)
[2024-04-14 10:25] LABS: BLOOD UREA NITROGEN 12 MG/DL (9-23); CALCIUM LEVEL 8.7 MG/DL (8.5-10.1); CARBON DIOXIDE LEVEL 27 MMOL/L (20-31); CHLORIDE LEVEL 104 MMOL/L (98-107); CREATININE FOR GFR 1.13 MG/DL (0.70-1.30); GLOMERULAR FILTRATION RATE > 60.0 (>60); GLUCOSE, FASTING 114 MG/DL (60-100); POTASSIUM SERUM 4.1 MMOL/L (3.5-5.1); SODIUM LEVEL 137 MMOL/L (136-145)
[2024-04-14 10:30] LABS: THYROID STIMULATING HORMONE 0.838 uIU/ML (0.55-4.78)
[2024-04-14 10:45] VITALS: BP 114/67; TEMP 98.3; O2SAT 95
== END 2024-04-14 11:00 | disposition home or self-care (01) ==
LOC: EDBD 09:28 → M ED 09:28
DX: J18.9 Pneumonia, unspecified organism (principal); Z79.2 Long term (current) use of antibiotics; Z79.899 Other long term (current) drug therapy

== ENCOUNTER → 2024-06-20 | Outpatient (CLI) | payer BC ==
[~2024-06-20] MED LIST changes: +DOXY100C82 PO
[2024-06-20 14:39] LABS: IRON (FE) 107 UG/DL (65-175); PERCENT SATURATION 38.2 % (19.7-50.0); TOTAL IRON BINDING CAPACITY 280 UG/DL (250-425)
[2024-06-20 14:40] LABS: FERRITIN 262.5 NG/ML (10.5-307.3)
[2024-06-20 14:54] LABS: HEPATITIS B SURFACE ANTIGEN NEGATIVE (NEGATIVE)
[2024-06-20 15:14] LABS: HEPATITIS C VIRUS ABY INDEX < 0.02 INDEX (<0.8)
[2024-06-20 15:15] LABS: HEPATITIS B CORE ANTIBODY IGM NEGATIVE (NEGATIVE)
== END ==
LOC: M WUC 09:48
PROVIDERS: ATTEND Physician Assistant Medical
DX: R74.01 Elevation of levels of liver transaminase levels (principal)

== ENCOUNTER → 2025-01-14 | Outpatient (REF) | payer BC ==
[~2025-01-14] MED LIST changes: +DOXY-442 PO; -DOXY100C82 PO; -FLOM0.4C39 PO; +TAMS-18 PO
== END ==
LOC: M LAB REF 12:16
PROVIDERS: ATTEND Physician Assistant Medical
DX: R68.82 Decreased libido (principal)

== ENCOUNTER 2025-01-22 02:49 | Emergency (ER) | payer BC ==
[~2025-01-22] VITALS: Ht 154.9 cm; Wt 103.0 kg
[2025-01-22 03:10] LABS: ABG BASE EXCESS -2.9 (-2.0-2.0); ABG HCO3 22.7 MMOL/L (22.0-26.0); ABG O2 SATURATION 82.3 % (95.0-99.0); ABG PARTIAL PRESSURE CO2 42.3 mmHg (35.0-45.0); ABG PARTIAL PRESSURE O2 45.8 mmHg (75.0-100.0); ABG STANDARD HCO3 21.7 MMOL/L. (22.0-26.0); ABG TOTAL CO2 24.0 MMOL/L (22.0-29.0); ABG pH (ARTERIAL) 7.347 UNITS (7.350-7.450)
[2025-01-22 03:12] LABS: BASO # 0.0 10^3/uL (0.0-0.2); BASO % 0.8 % (0.0-1.0); EOS # 0.2 10^3/uL (0.0-0.5); EOS % 4.0 % (0.0-3.0); LYMPH # 2.0 10^3/uL (1.5-5.0); LYMPH % 38.8 % (24.0-44.0); MONO # 0.4 10^3/uL (0.0-0.8); MONO % 8.4 % (2.0-8.0); NEUTROPHILS # 2.4 10^3/uL (1.5-8.5); NEUTROPHILS % 47.8 % (36.0-66.0); PLATELET COUNT, AUTOMATED 158 10^3/uL (150-450)
[2025-01-22 03:38] LABS: CALCIUM LEVEL 8.2 MG/DL (8.5-10.1); CARBON DIOXIDE LEVEL 23.0 MMOL/L (20-31); CHLORIDE LEVEL 108.0 MMOL/L (98-107); CREATININE FOR GFR 1.13 MG/DL (0.70-1.30); GLOMERULAR FILTRATION RATE 87.5 (>60); POTASSIUM SERUM 3.3 MMOL/L (3.5-5.1); SODIUM LEVEL 144.0 MMOL/L (136-145)
[2025-01-22 04:34] LABS: ABG BASE EXCESS -1.9 (-2.0-2.0); ABG HCO3 22.9 MMOL/L (22.0-26.0); ABG O2 SATURATION 99.6 % (95.0-99.0); ABG PARTIAL PRESSURE CO2 39.2 mmHg (35.0-45.0); ABG PARTIAL PRESSURE O2 291.2 mmHg (75.0-100.0); ABG STANDARD HCO3 23.0 MMOL/L. (22.0-26.0); ABG TOTAL CO2 24.1 MMOL/L (22.0-29.0); ABG pH (ARTERIAL) 7.384 UNITS (7.350-7.450)
[2025-01-22 05:32] LABS: CK-MB VALUE MASS < 1.0 NG/ML (<3.6)
[2025-01-22 05:36] LABS: CPK CREATINE PHOSPHOKINASE 119 U/L (46-171)
[2025-01-22 08:00] VITALS: BP 112/69; TEMP 97.3; O2SAT 96
== END 2025-01-22 08:19 | disposition home or self-care (01) ==
LOC: M ED 02:49
DX: R09.02 Hypoxemia (principal); J70.5 Respiratory conditions due to smoke inhalation; X08.8XXA Exposure to other specified smoke, fire and flames, initial encounter; F41.9 Anxiety disorder, unspecified; F17.200 Nicotine dependence, unspecified, uncomplicated; I10 Essential (primary) hypertension; Z79.899 Other long term (current) drug therapy